=== PATIENT | female | born 1980 | race American Indian/Alaskan Native ===

== ENCOUNTER 2017-08-01 09:12 | Outpatient (CLI) | payer OTHER | END 2017-08-01 10:02 | disposition home or self-care (01) | LOC: NST 09:12 | DX: Z34.82 Encounter for supervision of other normal pregnancy, second trimester (principal) ==

== ENCOUNTER 2017-09-12 10:02 | Outpatient (CLI) | payer OTHER | END 2017-09-12 11:19 | disposition home or self-care (01) | LOC: NST 10:02 | DX: Z34.83 Encounter for supervision of other normal pregnancy, third trimester (principal) ==

== ENCOUNTER 2017-10-10 11:23 | Inpatient (IN) | payer OTHER ==
[~2017-10-10] VITALS: Ht 157.5 cm; Wt 3.2 kg
[2017-11-04] MEDS ORDERED: OBSTETRIX EC C1 EACH PO (02:34)
[2017-11-04] MEDS ORDERED: FOLIC ACID0.4 MG PO (02:34)
== END 2017-11-06 13:07 | DRG 766 ==
LOC: LDR 11-04 01:57 → OB/GYN 11-04 01:57 → LDR 11-04 03:52 → OB/GYN 11-04 04:54 → LDR 11-04 08:18 → OB/GYN 11-04 20:30
PROVIDERS: Obstetrics & Gynecology Maternal & Fetal Medicine
PROC: 10907ZC Drainage of Amniotic Fluid, Therapeutic from Products of Conception, Via Natural or Artificial Opening (ICD-10-PCS; 2017-11-04)
PROC: 4A033R1 Measurement of Arterial Saturation, Peripheral, Percutaneous Approach (ICD-10-PCS; 2017-11-04)
PROC: 4A1HXCZ Monitoring of Products of Conception, Cardiac Rate, External Approach (ICD-10-PCS; 2017-11-04)
PROC: 10D00Z1 Extraction of Products of Conception, Low, Open Approach (ICD-10-PCS; principal; 2017-11-04 15:00)
DX: O62.1 Secondary uterine inertia (principal); Z3A.38 38 weeks gestation of pregnancy; Z37.0 Single live birth; Z22.330 Carrier of Group B streptococcus

== ENCOUNTER 2017-11-01 09:20 | Outpatient (CLI) | payer OTHER | END 2017-11-01 10:28 | disposition home or self-care (01) | LOC: NST 09:20 | DX: Z34.83 Encounter for supervision of other normal pregnancy, third trimester (principal) ==

== ENCOUNTER 2017-11-03 11:07 | Outpatient (CLI) | payer OTHER ==
[2017-11-04] MEDS ORDERED: OBSTETRIX EC C1 EACH PO (02:34)
[2017-11-04] MEDS ORDERED: FOLIC ACID0.4 MG PO (02:34)
== END 2017-11-03 11:56 | disposition home or self-care, planned readmission (81) ==
LOC: NST 11:07
DX: Z34.83 Encounter for supervision of other normal pregnancy, third trimester (principal)

== ENCOUNTER 2020-10-19 08:00 | Outpatient (CLI) | payer OTHER ==
[~2020-10-19 08:00] MED LIST: FOLIC ACID0.4 MG PO; OBSTETRIX EC C1 EACH PO
== END 2020-10-19 08:30 | disposition home or self-care (01) ==
LOC: PPH VACUNA 08:00
DX: Z23 Encounter for immunization (principal)

== ENCOUNTER 2020-11-09 08:00 | Outpatient (CLI) | payer OTHER | END 2020-11-09 08:30 | disposition home or self-care (01) | LOC: PPH VACUNA 08:00 | DX: Z23 Encounter for immunization (principal) ==

== ENCOUNTER 2021-09-22 06:35 | Day surgery (SDC) | payer OTHER ==
[~2021-09-22] VITALS: Ht 157.5 cm; Wt 56.7 kg
[~2021-09-22 06:35] MED LIST changes: +MOTRIN IB200 M1 PO
== END 2021-09-22 18:10 | disposition home or self-care (01) ==
LOC: CIR.AMB 06:35
PROVIDERS: ATTEND Obstetrics & Gynecology
DX: N75.8 Other diseases of Bartholin's gland (principal); J45.909 Unspecified asthma, uncomplicated; Z86.16 Personal history of COVID-19; K21.9 Gastro-esophageal reflux disease without esophagitis; Z20.822 Contact with and (suspected) exposure to COVID-19